=== PATIENT | female | born 1980 | race African-American/Black ===

== ENCOUNTER 2016-04-29 17:29 | Inpatient (IN) | payer MEDICAID, OTHER ==
[~2016-04-29] VITALS: Ht 172.7 cm; Wt 75.9 kg
[2016-04-29] MEDS ORDERED: ALBUTEROL SULF 2.5 MG/0.5ML(0.5%) NEB SOLN NEB ONE (18:15)
[2016-04-29] MEDS ORDERED: IPRATROPIUM BROM 0.5 MG/2.5ML INH SOL NEB ONE (18:15)
[2016-04-29 19:37] LABS: Basophils # (auto) 0 uL; Basophils % (auto) 0.3 % (0.0-2.0); Eosinophils # (auto) 0 uL; Hematocrit 43.7 % (36.0-46.0); Hemoglobin 13.9 g/dL (12.2-16.2); Lymphocytes # (auto) 2.1 uL; Lymphocytes % (auto) 36.7 % (10.0-50.0); Mean Corpuscular Hemoglobin 28.6 pg (28.0-32.0); Mean Corpuscular Hgb Conc. 31.8 g/dL (32.0-36.0); Mean Corpuscular Volume 89.9 fL (80.0-100.0); Mean Platelet Volume 8.9 fL (7.4-10.4); Monocytes % (auto) 17.2 % (0.0-12.0); Neutrophils # (auto) 2.6 uL; Neutrophils % (auto) 45.8 % (37.0-80.0); Platelet Count (auto) 175 10^3/uL (140-450); Red Cell Distribution Width 13.3 % (11.6-16.0); White Blood Cell 5.7 10^3/uL (4.4-10.8)
[2016-04-29 19:43] LABS: Albumin 3.2 g/dL (3.4-5.0); BUN/Creatinine Ratio 13.4; Bilirubin, Total 0.5 mg/dL (0.2-1.0); Calcium 8.4 mg/dL (8.5-10.1); Magnesium 2.3 mg/dL (1.6-2.6); Potassium 3.5 mmol/L (3.5-5.1); Total Protein 7.2 g/dL (6.4-8.2)
[2016-04-29 20:46] LABS: B-Type Natriuretic Peptide 127.47 pg/mL (0-100); Temperature: 22.7 C (20.0-25.0)
[2016-04-29 23:22] LABS: Urine Bilirubin Negative (Negative); Urine Blood TRACE /uL (Negative); Urine Color Yellow (Yellow); Urine Glucose Normal (Normal); Urine Granular Cast FEW /lpf (0); Urine Mucus FEW (None Seen); Urine Nitrite Negative (Negative); Urine RBC 4 /hpf (0 - 4); Urine Squamous Epithelial Cell FEW /hpf (<5); Urine pH 6.5 (5.0-8.0)
[2016-04-29 23:26] LABS: Urine Ketone 1+ (Negative)
[2016-04-30] MEDS ORDERED: HYDROcodone-ACET 10/325MG TAB PO ONE (05:15)
[2016-04-30] MEDS ORDERED: FUROSEMIDE 20 MG/2 ML VIAL IV ONE (07:00)
[2016-04-30] MEDS ORDERED: cefTRIAXone 1GM/50ML D5W 50 ML IV ONE (07:00)
[2016-04-30] MEDS ORDERED: ALBUTEROL SULF 2.5 MG/0.5ML(0.5%) NEB SOLN NEB PRN (08:15)
[2016-04-30] MEDS ORDERED: ACETAMINOPHEN 500 MG TAB PO PRN (08:15)
[2016-04-30] MEDS ORDERED: MORPHINE SULF INJ 2 MG/ML SYRINGE 1ML IV PRN ×2 (08:15)
[2016-04-30] MEDS ORDERED: LORazepam 0.5 MG TAB PO PRN (08:15)
[2016-04-30] MEDS ORDERED: NITROGLYCERIN 0.4 MG SL TAB SL PRN (08:15)
[2016-04-30] MEDS ORDERED: PROMETHAZINE HCL 25 MG/ML 1ML IV PRN (08:15)
[2016-04-30] MEDS ORDERED: LACTULOSE 20Gm/30ML SOLN PO PRN ×2 (08:15)
[2016-04-30] MEDS ORDERED: OSELTAMIVIR 75 MG CAP PO ONE (09:00)
[2016-04-30] MEDS: ASPirin 81 mg TAB PO SCH (09:51)
[2016-04-30] MEDS: LEVOFLOXACIN 500MG 100 ML IV SCH (09:51)
[2016-04-30] MEDS: CARVEDILOL 3.125 MG TAB PO SCH ×2 (09:51→21:59)
[2016-04-30] MEDS: ENALAPRIL MALEATE 2.5 MG TAB PO SCH (09:51)
[2016-04-30] MEDS: ENOXAPARIN SOD 40 MG/0.4 ML SYRINGE SC SCH (09:52)
[2016-04-30] MEDS ORDERED: ENOXAPARIN SOD 40 MG/0.4 ML SYRINGE SC SCH (10:00)
[2016-04-30] MEDS ORDERED: FUROSEMIDE 40 MG/4 ML VIAL IV SCH (10:00)
[2016-04-30] MEDS ORDERED: POTASSIUM CHL 20 Meq TABLET PO SCH (10:00)
[2016-04-30 10:21] LABS: B-Type Natriuretic Peptide 29.33 pg/mL (0-100)
[2016-04-30 10:29] LABS: Temperature: 21.9 C (20.0-25.0)
[2016-04-30] MEDS ORDERED: methylPREDNISolone SOD SUCC 40 MG/ML VL IV SCH (12:00)
[2016-04-30] MEDS ORDERED: IOHEXOL 300 MG/ML 100ML BOTTLE IJ ONE (13:30)
[2016-04-30] MEDS: CLINDAMYCIN 600MG IV 50 ML IV SCH ×2 (14:00→22:01)
[2016-04-30] MEDS: IPRATROPIUM BROM 0.5 MG/2.5ML INH SOL NEB SCH ×2 (15:43→18:00)
[2016-04-30] MEDS: ALBUTEROL SULF 2.5 MG/0.5ML(0.5%) NEB SOLN NEB SCH ×2 (15:43→18:00)
[2016-04-30 16:00] VITALS: BP 124/65
[2016-04-30] MEDS: SODIUM CHLOR 0.9% PF (SALINE LOCK) 10ML VIAL IV SCH ×2 (16:18→22:01)
[2016-04-30 20:57] VITALS: BP 126/72
[2016-04-30] MEDS: OSELTAMIVIR 75 MG CAP PO SCH (22:00)
[2016-05-01] VITALS (7 sets, daily range): BP systolic 109–137; BP diastolic 46–97
[2016-05-01 05:02] LABS: DEFINITIVE VIEW TRANSMISSION; Mean Corpuscular Hemoglobin 28.2 pg (28.0-32.0); Mean Corpuscular Hgb Conc. 30.9 g/dL (32.0-36.0); Mean Corpuscular Volume 91.3 fL (80.0-100.0); Mean Platelet Volume 8.8 fL (7.4-10.4); Platelet Count (auto) 163 10^3/uL (140-450); Red Cell Distribution Width 13.3 % (11.6-16.0); SUSPECT VIEW TRANSMISSION; White Blood Cell 4.2 10^3/uL (4.4-10.8)
[2016-05-01 05:19] LABS: Metamyelocytes % 0; Myelocytes % 0; Promyelocytes % 0; Reactive Lymphocytes 0
[2016-05-01 05:28] LABS: Albumin 2.7 g/dL (3.4-5.0); BUN/Creatinine Ratio 12.3; Bilirubin, Total 0.7 mg/dL (0.2-1.0); Calcium 8.3 mg/dL (8.5-10.1); Potassium 3.3 mmol/L (3.5-5.1); Total Protein 6.5 g/dL (6.4-8.2)
[2016-05-01 05:58] LABS: B-Type Natriuretic Peptide 9.22 pg/mL (0-100)
[2016-05-01] MEDS: CLINDAMYCIN 600MG IV 50 ML IV SCH (06:00)
[2016-05-01 06:01] LABS: Platelet Estimate Adequate
[2016-05-01 06:02] LABS: RBC Morphology Normal
[2016-05-01 06:26] LABS: Temperature: 22.2 C (20.0-25.0)
[2016-05-01] MEDS: IPRATROPIUM BROM 0.5 MG/2.5ML INH SOL NEB SCH ×3 (06:35→19:38)
[2016-05-01] MEDS: ALBUTEROL SULF 2.5 MG/0.5ML(0.5%) NEB SOLN NEB SCH ×3 (06:35→19:38)
[2016-05-01] MEDS: SODIUM CHLOR 0.9% PF (SALINE LOCK) 10ML VIAL IV SCH ×3 (08:22→21:18)
[2016-05-01] MEDS: ASPirin 81 mg TAB PO SCH (09:46)
[2016-05-01] MEDS: LEVOFLOXACIN 500MG 100 ML IV SCH (09:46)
[2016-05-01] MEDS: OSELTAMIVIR 75 MG CAP PO SCH (09:47)
[2016-05-01] MEDS: CARVEDILOL 3.125 MG TAB PO SCH (09:47)
[2016-05-01] MEDS: ENALAPRIL MALEATE 2.5 MG TAB PO SCH (09:48)
[2016-05-01] MEDS: ENOXAPARIN SOD 40 MG/0.4 ML SYRINGE SC SCH (09:48)
[2016-05-01] MEDS ORDERED: POTASSIUM CHL 20 Meq TABLET PO ONE (10:30)
[2016-05-01] MEDS ORDERED: FUROSEMIDE 40 MG TAB PO ONE (11:45)
[2016-05-01] MEDS: HYDROcodone-ACET 5/325MG TAB PO PRN (19:26)
[2016-05-01] MEDS: METOPROLOL TARTRATE 25 MG TAB PO SCH (21:22)
[2016-05-02] VITALS (8 sets, daily range): BP systolic 122–134; BP diastolic 75–87
[2016-05-02] MEDS: SODIUM CHLOR 0.9% PF (SALINE LOCK) 10ML VIAL IV SCH ×3 (06:33→21:04)
[2016-05-02 06:54] LABS: BUN/Creatinine Ratio 10.5; Calcium 8.4 mg/dL (8.5-10.1); Potassium 3.5 mmol/L (3.5-5.1)
[2016-05-02] MEDS: ALBUTEROL SULF 2.5 MG/0.5ML(0.5%) NEB SOLN NEB SCH ×5 (07:25→19:26)
[2016-05-02] MEDS: IPRATROPIUM BROM 0.5 MG/2.5ML INH SOL NEB SCH ×5 (07:25→19:26)
[2016-05-02] MEDS ORDERED: POTASSIUM CHL 20 Meq TABLET PO SCH (10:00)
[2016-05-02] MEDS: LEVOFLOXACIN 750MG 150 ML IV SCH (10:15)
[2016-05-02] MEDS: METOPROLOL TARTRATE 25 MG TAB PO SCH ×2 (10:18→21:03)
[2016-05-02] MEDS: ENOXAPARIN SOD 40 MG/0.4 ML SYRINGE SC SCH (10:18)
[2016-05-02] MEDS: ENALAPRIL MALEATE 2.5 MG TAB PO SCH (10:19)
[2016-05-02] MEDS: FUROSEMIDE 40 MG TAB PO SCH (10:19)
[2016-05-02] MEDS: ASPirin 81 mg TAB PO SCH (10:19)
[2016-05-02] MEDS: POTASSIUM CHL 20 Meq TABLET PO SCH (10:20)
[2016-05-02] MEDS: methylPREDNISolone SOD SUCC 125 MG/2 ML VL IV SCH (18:11)
[2016-05-02] MEDS: BUDESONIDE (INHALATION) 0.5 MG/2 ML NEB NEB SCH (19:27)
[2016-05-02] MEDS: TEMAZEPAM 15 MG CAP PO PRN (21:01)
[2016-05-02] MEDS: HYDROcodone-ACET 5/325MG TAB PO PRN (21:03)
[2016-05-03] VITALS (7 sets, daily range): BP systolic 113–153; BP diastolic 40–81
[2016-05-03] MEDS: methylPREDNISolone SOD SUCC 125 MG/2 ML VL IV SCH ×2 (00:24→05:38)
[2016-05-03] MEDS: LEVOFLOXACIN 750MG 150 ML IV SCH (05:32)
[2016-05-03] MEDS: IPRATROPIUM BROM 0.5 MG/2.5ML INH SOL NEB SCH ×3 (05:32→18:00)
[2016-05-03] MEDS: ALBUTEROL SULF 2.5 MG/0.5ML(0.5%) NEB SOLN NEB SCH ×4 (05:32→18:00)
[2016-05-03] MEDS: SODIUM CHLOR 0.9% PF (SALINE LOCK) 10ML VIAL IV SCH ×3 (05:38→22:15)
[2016-05-03] MEDS: BUDESONIDE (INHALATION) 0.5 MG/2 ML NEB NEB SCH ×2 (10:05→22:00)
[2016-05-03] MEDS: POTASSIUM CHL 20 Meq TABLET PO SCH (10:25)
[2016-05-03] MEDS: ASPirin 81 mg TAB PO SCH (10:26)
[2016-05-03] MEDS: FUROSEMIDE 40 MG TAB PO SCH (10:26)
[2016-05-03] MEDS: ENALAPRIL MALEATE 2.5 MG TAB PO SCH (10:26)
[2016-05-03] MEDS: METOPROLOL TARTRATE 25 MG TAB PO SCH ×2 (10:27→22:09)
[2016-05-03] MEDS: ENOXAPARIN SOD 40 MG/0.4 ML SYRINGE SC SCH (10:28)
[2016-05-03] MEDS: HYDROcodone-ACET 5/325MG TAB PO PRN ×2 (15:45→22:10)
[2016-05-03] MEDS: TEMAZEPAM 15 MG CAP PO PRN (22:13)
[2016-05-04 05:00] VITALS: BP 120/77
[2016-05-04] MEDS: SODIUM CHLOR 0.9% PF (SALINE LOCK) 10ML VIAL IV SCH ×2 (06:04→14:00)
[2016-05-04] MEDS: ALBUTEROL SULF 2.5 MG/0.5ML(0.5%) NEB SOLN NEB SCH ×2 (06:33→09:45)
[2016-05-04] MEDS: IPRATROPIUM BROM 0.5 MG/2.5ML INH SOL NEB SCH ×2 (06:33→09:45)
[2016-05-04 08:00] VITALS: BP 103/64
[2016-05-04 08:50] VITALS: BP 103/64
[2016-05-04] MEDS: BUDESONIDE (INHALATION) 0.5 MG/2 ML NEB NEB SCH (09:45)
[2016-05-04] MEDS: LEVOFLOXACIN 750MG 150 ML IV SCH (09:55)
[2016-05-04] MEDS: FUROSEMIDE 40 MG TAB PO SCH (09:56)
[2016-05-04] MEDS: ASPirin 81 mg TAB PO SCH (09:56)
[2016-05-04] MEDS: POTASSIUM CHL 20 Meq TABLET PO SCH (09:56)
[2016-05-04] MEDS: HYDROcodone-ACET 5/325MG TAB PO PRN (09:56)
[2016-05-04] MEDS: ENALAPRIL MALEATE 2.5 MG TAB PO SCH (09:57)
[2016-05-04] MEDS: METOPROLOL TARTRATE 25 MG TAB PO SCH (09:57)
[2016-05-04] MEDS: ENOXAPARIN SOD 40 MG/0.4 ML SYRINGE SC SCH (09:57)
[2016-05-04] MEDS ORDERED: predniSONE 20 MG TAB PO SCH (10:00)
[2016-05-04 10:50] VITALS: BP 103/64
[2016-05-04] MEDS ORDERED: CLOPIDOGREL BISULFATE 75 MG TAB PO ONE (12:00)
[2016-05-04 13:00] VITALS: BP 115/74
[2016-05-04] MEDS ORDERED: MET25T PO (13:30)
[2016-05-04] MEDS ORDERED: ALBUAER3 IN (13:30)
[2016-05-04] MEDS ORDERED: FURO40TA4 PO (13:30)
[2016-05-04] MEDS ORDERED: ASPI81CH43 PO (13:30)
[2016-05-04] MEDS ORDERED: CLOP75TA28 PO (13:30)
[2016-05-04] MEDS ORDERED: POTA20TA53 PO (13:30)
[2016-05-04] MEDS ORDERED: ENA2.5T PO (13:36)
[2016-05-04 13:52] VITALS: BP 115/74
[2016-05-04] MEDS ORDERED: ATOR20TA50 PO (15:21)
[2016-05-05] MEDS ORDERED: CLOPIDOGREL BISULFATE 75 MG TAB PO SCH (10:00)
[2016-05-05 21:06] LABS: Coxsackie B-2 Ab 1:32 (Neg:<1:8); Coxsackie B-4 Ab 1:32 (Neg:<1:8); Coxsackie B-6 Ab 1:32 (Neg:<1:8)
== END 2016-05-04 14:15 | disposition home or self-care (01) | DRG 280 ==
LOC: ER 17:36 → TELE 17:37 → DOU IN ICU 04-30 10:43 → TELE-E-ADS 04-30 10:53 → DOU IN ICU 04-30 15:52 → TELE-WESTW 05-02 12:52
PROVIDERS: ADMIT Internal Medicine; ATTEND Internal Medicine
DX: I21.4 Non-ST elevation (NSTEMI) myocardial infarction (principal); J96.00 Acute respiratory failure, unspecified whether with hypoxia or hypercapnia; J15.9 Unspecified bacterial pneumonia; I50.33 Acute on chronic diastolic (congestive) heart failure; N39.0 Urinary tract infection, site not specified; E44.0 Moderate protein-calorie malnutrition; E66.01 Morbid (severe) obesity due to excess calories; F41.9 Anxiety disorder, unspecified; N92.3 Ovulation bleeding; F17.210 Nicotine dependence, cigarettes, uncomplicated; E78.5 Hyperlipidemia, unspecified; Z82.49 Family history of ischemic heart disease and other diseases of the circulatory system; Z83.3 Family history of diabetes mellitus; Z80.9 Family history of malignant neoplasm, unspecified; Z88.8 Allergy status to other drugs, medicaments and biological substances; Z79.899 Other long term (current) drug therapy; E87.6 Hypokalemia; Z68.25 Body mass index [BMI] 25.0-25.9, adult; Z71.6 Tobacco abuse counseling
CPT/HCPCS: 36415; 71010; 71275; 76856; 80048; 80053; 80061; 81001; 81025; 82550; 82962; 83735; 83880; 84443; 84484; 85007; 85025; 85027; 85379; 85652; 86141; 86658; 87040; 87081; 87086; 87400; 93005; 93306; 94640; 96365; 96375; J0696; J1956; J3490

== ENCOUNTER 2017-01-31 14:36 | Emergency (ER) | payer MEDICAID, OTHER ==
[~2017-01-31] VITALS: Ht 170.2 cm; Wt 149.7 kg
[~2017-01-31 14:36] MED LIST: ALBUAER3 IN; ASPI81CH43 PO; ATOR20TA50 PO; CLOP75TA28 PO; ENA2.5T PO; FURO40TA4 PO; MET25T PO; POTA20TA53 PO
[2017-01-31 15:50] VITALS: BP 156/93
[2017-01-31] MEDS ORDERED: HYDROmorphone HCL 2 MG/ML VL IM ONE (16:00)
[2017-01-31] MEDS ORDERED: ONDANSETRON HCL 4 MG/2 ML VIAL IM ONE (16:00)
== END 2017-01-31 16:34 | disposition home or self-care (01) ==
LOC: ER 14:36
DX: S60.211A Contusion of right wrist, initial encounter (principal); F17.210 Nicotine dependence, cigarettes, uncomplicated; J45.909 Unspecified asthma, uncomplicated; I10 Essential (primary) hypertension; E78.5 Hyperlipidemia, unspecified; Z79.82 Long term (current) use of aspirin; Z88.8 Allergy status to other drugs, medicaments and biological substances; Z79.899 Other long term (current) drug therapy; X58.XXXA Exposure to other specified factors, initial encounter; Y93.89 Activity, other specified; Y92.89 Other specified places as the place of occurrence of the external cause; Y99.8 Other external cause status
CPT/HCPCS: 29125; 73110; 96372; 99284; J1170; J2405

== ENCOUNTER 2017-05-17 13:08 | Emergency (ER) | payer OTHER ==
[~2017-05-17] VITALS: Ht 170.2 cm; Wt 149.7 kg
[2017-05-17 14:47] LABS: Hematocrit 41.9 % (36.0-46.0); Hemoglobin 13.7 g/dL (12.2-16.2); Mean Corpuscular Hemoglobin 30.7 pg (28.0-32.0); Mean Corpuscular Hgb Conc. 32.6 g/dL (32.0-36.0); Platelet Count (auto) 221 10^3/uL (140-450); Red Blood Cells 4.46 10^6/uL (4.0-5.20); Red Cell Distribution Width 13.6 % (11.8-14.3); White Blood Cell 5.3 10^3/uL (4.4-10.8)
[2017-05-17 15:05] LABS: Band Neutrophils % (manual) 0; Basophils % (manual) 0 (0.0-2.0); Blast Cells 0; Metamyelocytes % 0; Myelocytes % 0; Promyelocytes % 0; Reactive Lymphocytes 0
[2017-05-17 15:15] LABS: Alanine Aminotransferase 13 U/L (13-56); Albumin 3.3 g/dL (3.4-5.0); Alkaline Phosphatase 65 U/L (45-117); Anion Gap 7 (5-15); Aspartate Aminotransferase 9 U/L (15-37); BUN/Creatinine Ratio 12.3; Bilirubin, Total 0.3 mg/dL (0.2-1.0); Blood Urea Nitrogen 8 mg/dL (7-18); Calcium 8.8 mg/dL (8.5-10.1); Carbon Dioxide 27 mmol/L (21-32); Chloride 106 mmol/L (98-107); GFR African American 133 mL/min; GFR Non-African American 110 mL/min; Glucose 93 mg/dL (74-106); Potassium 4.1 mmol/L (3.5-5.1); Sodium 140 mmol/L (136-145); Total Protein 7.2 g/dL (6.4-8.2)
[2017-05-17 15:48] LABS: Eosinophils % (manual) 1 (0-7); Lymphocytes % (manual) 62 (10.0-50.0); Monocytes % (manual) 12 (0-12)
[2017-05-17 16:29] VITALS: BP 142/67
== END 2017-05-17 18:09 | disposition home or self-care (01) ==
LOC: ER 13:08
DX: R00.2 Palpitations (principal); J45.909 Unspecified asthma, uncomplicated; I10 Essential (primary) hypertension; E78.5 Hyperlipidemia, unspecified; R51 Headache; F17.210 Nicotine dependence, cigarettes, uncomplicated; Z88.6 Allergy status to analgesic agent; Z79.82 Long term (current) use of aspirin
CPT/HCPCS: 36415; 71046; 80053; 81025; 84484; 85007; 85027; 93005

== ENCOUNTER 2017-06-22 12:48 | Emergency (ER) | payer OTHER ==
[~2017-06-22] VITALS: Ht 170.2 cm; Wt 156.0 kg
[2017-06-22 13:46] VITALS: BP 132/92
== END 2017-06-22 14:27 | disposition home or self-care (01) ==
LOC: ER 12:48
DX: J02.9 Acute pharyngitis, unspecified (principal); J45.909 Unspecified asthma, uncomplicated; E78.5 Hyperlipidemia, unspecified; I10 Essential (primary) hypertension; F17.210 Nicotine dependence, cigarettes, uncomplicated
CPT/HCPCS: 71046